=== PATIENT | male | born 1970 | race Caucasian/White ===

== ENCOUNTER 2016-12-16 06:40 | Emergency (ER) | payer BC, OTHER ==
[~2016-12-16] VITALS: Ht 175.3 cm; Wt 84.5 kg
[~2016-12-16 06:40] MED LIST: PRED1SUS6 OP
[2016-12-16 06:42] VITALS: BP 155/100; PULSE 109; RESP 14; TEMP 98.1; O2SAT 99
[2016-12-16] MEDS ORDERED: PRED20 PO (06:48)
--- NOTE | 2016-12-16 07:10 | PD ---
HPI Chief Complaint: Lump, Cyst, Hernia Time Seen by Provider: 07:10 Travel History International Travel<30 days: No Contact w/Intl Traveler<30days: No Traveled to known affect area: No History of Present Illness HPI 46-year-old male came to the emergency room complaining of a hernia that he has noticed on the left testicular area that comes and goes and has been going on for past few weeks. Lately it has been bothering him a lot. Yesterday his left testicle was very swollen and he went to see his primary care. Upon exam the primary care asked them to go to the emergency room. However patient came in this morning. At this point he agrees that this swelling has subsided. He is concerned because it keeps coming out and when it does it is painful. No history of nausea vomiting. Patient appears to be anxious. He has history of hernia surgery previously on the right side. [facility] Past Medical History Narrative Medical List of his past medical, surgical, social and family history was reviewed from the nursing note. Medical History: Denies Significant Hx Tetanus Vaccination: < 5 Years Influenza Vaccination: No Social History Alcohol Use: Yes Tobacco Use: No Substance Use: No Allergies-Medications (Allergen,Severity, Reaction): Coded Allergies: No Known Allergies (Unverified , 10/08/12) Comments No known drug allergies. Reported Meds & Prescriptions Reported Meds & Active Scripts Active Miralax Powder (Polyethylene Glycol 3350 Powder) 17 Gm Powd 17 Gm PO DAILY Mix and dissolve one measuring cap-ful (17 grams) in water or juice. Reported Prednisone 20 Mg Tab 30 Mg PO BID Narrative Medication List of his home medications reviewed from the nursing note. Review of Systems Except as stated in HPI: all other systems reviewed are Neg Physical Exam Narrative GENERAL: Awake, alert, anxious SKIN: Focused skin assessment warm/dry. HEAD: Atraumatic. Normocephalic. EYES: Pupils equal and round. No scleral icterus. No injection or drainage. ENT: No nasal bleeding or discharge. Mucous membranes pink and moist. NECK: Trachea midline. No JVD. CARDIOVASCULAR: Regular rate and rhythm. No murmur appreciated. RESPIRATORY: No accessory muscle use. Clear to auscultation. Breath sounds equal bilaterally. GASTROINTESTINAL: Abdomen soft, non-tender, nondistended. Hepatic and splenic margins not palpable. No obvious hernia noticed on the left of the right side. The inguinal ring is dilated and allows two fingers. No bowel loops protruding. Patient was asked to stand up and cough and I did not see any bowel loops coming out into the scrotal sac. MUSCULOSKELETAL: No obvious deformities. No clubbing. No cyanosis. No edema. NEUROLOGICAL: Awake and alert. No obvious cranial nerve deficits. Motor grossly within normal limits. Normal speech. PSYCHIATRIC: Appropriate mood and affect; insight and judgment normal. Data Data Last Documented VS Vital Signs Date Time Temp Pulse Resp B/P (MAP) Pulse Ox O2 Delivery O2 Flow Rate FiO2 12/16/16 07:55 12/16/16 06:42 98.1 109 14 99 Room Air MDM Medical Decision Making Medical Screen Exam Complete: Yes Emergency Medical Condition: Yes Medical Record Reviewed: Yes Differential Diagnosis Indirect hernia Narrative Course 7:20 AM upon exam no hernia was appreciated. I tried to explain to the patient that at this point this is not an emergency. He will be given the name of the surgeon who is on-call for us so that he can call and make an appointment and then get a surgery scheduled upon his convenience on a sooner basis. 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 I tried to explain to him that since this is not an emergency a hospitalization would not be appropriate for this. Patient will be discharged home. Procedures EKG Prior to Arrival: No Diagnosis Primary Impression: Inguinal hernia Qualified Codes: K40.91 - Unilateral inguinal hernia, without obstruction or gangrene, recurrent Referrals: Sheldon Stephens MD 1 week Patient Instructions: General Instructions Departure Forms: Tests/Procedures, Work Release Enter return to work date: Dec 20, 2016 Additional Instructions: Please call the surgeon who is name and number been provided to you in this discharge paper. Please return to the ER if the hernia is strangulated/ incarcerated which means that the loops of the bowel cannot go back in. In such case he should come to the emergency room immediately. Do not lift anything heavy. Take the medication which is a stool softener so that any intra -abdominal pressure is avoided. Med/Other Pt SpecificInfo: Prescription(s) given Scripts Polyethylene Glycol 3350 Powder (Miralax Powder) 17 Gm Powd 17 GM PO DAILY for Constipation, #1 CAN 0 Refills Mix and dissolve one measuring cap-ful (17 grams) in water or juice. Prov: Sonja Garcia MD 12/16/16 Disposition: 01 DISCHARGE HOME Condition: Stable Sonja Garcia MD Dec 16, 2016 07:10
[2016-12-16] MEDS ORDERED: MIRA3350 PO (07:27)
== END 2016-12-16 08:15 | disposition home or self-care (01) ==
LOC: NEPE 06:40
DX: K40.91 Unilateral inguinal hernia, without obstruction or gangrene, recurrent (principal); Z79.899 Other long term (current) drug therapy
CPT/HCPCS: 99282